=== PATIENT | female | born 1985 | race Caucasian/White ===

== ENCOUNTER 2018-08-31 07:09 | Inpatient (IN) | payer OTHER ==
[2018-08-31] VITALS (12 sets, daily range): BP systolic 128–142; BP diastolic 69–100
[2018-08-31] MEDS ORDERED: OXYTOCIN 30 UNITS IN 0.9% NaCl 500ML IV BAG (J2590) As Ordered ONE (07:20)
[2018-08-31] MEDS ORDERED: LR 1,000 ML IV SCH (07:50)
[2018-08-31] MEDS ORDERED: OXYTOCIN DRIP 30 UNITS in APPROPRIATE DILUENT 1 EA IV SCH (07:54)
[2018-08-31 07:57] LABS: CORD GAS ABE V -8.5; CORD GAS HCO3 V 17.1 MEQ/L; CORD GAS O2 SAT V 83.8 %; CORD GAS PCO2 V 35.9 mmHg; CORD GAS PH V 7.295 UNITS; CORD GAS SBC V 17.5 MEQ/L; CORD GAS TCO2 V 18.2 MEQ/L
[2018-08-31 08:00] LABS: CORD GAS ABE A -7.8; CORD GAS HCO3 A 19.8 MEQ/L; CORD GAS O2 SAT A 57.3 %; CORD GAS PCO2 A 47.4 mmHg; CORD GAS PH A 7.238 UNITS; CORD GAS PO2 A 27.7 mmHg; CORD GAS SBC A 17.4 MEQ/L; CORD GAS TCO2 A 21.2 MEQ/L
[2018-08-31] MEDS ORDERED: METOCLOPRAMIDE INJ 10MG/2ML VIAL (J2765) IV PRN (08:00)
[2018-08-31] MEDS ORDERED: DIBUCAINE 1% OINTMENT 30GM TOP PRN (08:00)
[2018-08-31] MEDS ORDERED: RHOGAM 300 MCG (1500 IU) INJ (J2790) IM SCH (08:00)
[2018-08-31] MEDS ORDERED: miSOPROStol 200 MCG TAB (S0191) PR ONE (08:15)
--- NOTE | 2018-08-31 08:15 | IPNPDOC ---
Text Note Date of Service The patient was seen on 08/31/18. NOTE SBAR from Dr Perez, precip del shortly after 0730. Asked by RN to eval bleeding, a bit more than normal Bimanual exam done and Ut was at U and boggy, with a clot at the ROLLY and cx, all removed, fundus now firm. Pit increased from 125/hr to 999/hr and cytotec placed 1000 mcg MS, also methergine 0.2 mg IM. Will get a methergine oral series for 1 day and a CBC in the AM Watching closely Sessions A-FIB/YURY A-FIB History Current/History of A-Fib/PAF?: No SESSIONS,KING Hutson MD August 31, 2018 08:15
[2018-08-31] MEDS ORDERED: IBUPROFEN 800 MG TAB As Ordered ONE (08:16)
[2018-08-31] MEDS ORDERED: PRENTAB9 PO (08:22)
[2018-08-31] MEDS ORDERED: IRON1TAB2 PO (08:22)
[2018-08-31] MEDS: IBUPROFEN 800 MG TAB PO PRN ×2 (08:38→19:26)
[2018-08-31] MEDS: DOCUSATE SODIUM 100 MG CAP PO SCH ×2 (09:00→21:00)
[2018-08-31] MEDS: PRENATAL VITAMINS CHEWABLE TABLET PO SCH (09:00)
[2018-08-31] MEDS ORDERED: METHYLERGONOVINE MALEATE 0.2 MG/ML VIAL (J2210) IM ONE (09:00)
[2018-08-31] MEDS ORDERED: OXYTOCIN INJ 10 UNITS/ML VIAL (J2590) As Ordered ONE (09:02)
[2018-08-31] MEDS ORDERED: OXYTOCIN INJ 10 UNITS/ML VIAL (J2590) IV ONE (09:15)
[2018-08-31 09:27] LABS: HEMATOCRIT 34.4 % (36.0-47.0); HEMOGLOBIN 11.7 g/dl (12.0-15.5); MEAN CORPUSCULAR HEMOGLOBIN 31.6 pg (27.0-33.0); PLATELET COUNT, AUTOMATED 219 10^3/uL (150-450)
--- NOTE | 2018-08-31 13:03 | DN ---
DATE OF DELIVERY: 08/31/2018 This lady is a 32-year-old 7, para 1 who was admitted at 38+ weeks of gestation in active labor, found to be spontaneous rupture of membranes clear liqua, fully dilated and pushing. She precipitously delivered a live female infant weighing 3460 grams, 7 pounds 10 ounces, scores of 8 and 8 at 1 and 5 minutes respectively. Placenta delivered spontaneously thereafter. Three-vessels in the cord. Membranes and tissues intact. Uterus contracted well down on Pitocin. Arterial and venous pH were performed. On examination perineum was intact. Lateral and posterior rajan were intact. Bladder was intact. Sphincter was tight. No evidence of lacerations, tears or abrasions. The patient is O negative. Tolerated procedure well.
[2018-08-31] MEDS: ACETAMINOPHEN TAB 650MG DOSE (2X325MG) PO PRN ×2 (13:55→21:06)
[2018-08-31] MEDS: METHYLERGONOVINE MALEATE 0.2 MG TAB PO SCH ×3 (13:55→21:06)
[2018-09-01] MEDS: METHYLERGONOVINE MALEATE 0.2 MG TAB PO SCH ×3 (00:50→08:17)
[2018-09-01 05:24] LABS: HEMATOCRIT 32.6 % (36.0-47.0); MEAN CORPUSCULAR HEMOGLOBIN 31.8 pg (27.0-33.0); MEAN CORPUSCULAR HGB CONC 33.7 g/dl (32.0-36.5); MEAN CORPUSCULAR VOLUME 94.2 fl (80.0-96.0); PLATELET COUNT, AUTOMATED 189 10^3/uL (150-450); RED BLOOD COUNT 3.46 10^6/uL (4.00-5.40); WHITE BLOOD COUNT 11.5 10^3/uL (4.0-10.0)
[2018-09-01] MEDS: IBUPROFEN 800 MG TAB PO PRN (05:25)
[2018-09-01 06:24] VITALS: BP 121/77
--- NOTE | 2018-09-01 07:24 | IPNPDOC ---
Text Note Date of Service The patient was seen on 09/01/18. NOTE PPD1 States feeling well, pain controlled with prescribed meds. Baby bonding and feeding well. No heavy VB. Lochia slowing. Ambulatory. Tolerating PO without issues. Voiding spont. No CP/LP/SOB. VSSAF NAD A&O LE no C/C/E Ut at U-2, firm a/p: Doing well. Cont routine care. D/C today, boarding if baby stays Sessions A-FIB/YURY A-FIB History Current/History of A-Fib/PAF?: No VS,Fishbone, I+O VS, Fishbone, I+O Laboratory Tests 08/31/18 08:41 Red Blood Count 3.70 L, Mean Corpuscular Volume 93.0, Mean Corpuscular Hemoglobin 31.6, Mean Corpuscular Hemoglobin Concent 34.0, Red Cell Distribution Width 13.0 09/01/18 05:15 Red Blood Count 3.46 L, Mean Corpuscular Volume 94.2, Mean Corpuscular Hemoglobin 31.8, Mean Corpuscular Hemoglobin Concent 33.7, Red Cell Distribution Width 13.2 Vital Signs Date Time Temp Pulse Resp B/P (MAP) Pulse Ox O2 Delivery O2 Flow Rate FiO2 09/01/18 06:24 98.5 67 18 121/77 (92) I&O- Last 24 Hours up to 6 AM 09/01/18 06:00 Output Total 900 ml Balance -900 ml SESSIONS,KING Hutson MD September 01, 2018 07:24
--- NOTE | 2018-09-01 07:27 | DS.PDOC ---
Discharge Summary General Date of Admission August 31, 2018 at 07:27 Date of Discharge [id number] Discharge Summary ADMITTING DIAGNOSES: Active labor DISCHARGE DIAGNOSES: Same, HOSPITAL COURSE: Admitted and delivery uncomplicated, . course uncomplicated. DISCHARGE MEDICATIONS: Motrin, Lanolin, Nor DISCHARGE INSTRUCTIONS: Nothing in the vagina for 6 weeks. F/U in OBGYN clinic in 6-8 weeks. Sessions Vital Signs/I&Os Vital Signs Date Time Temp Pulse Resp B/P (MAP) Pulse Ox O2 Delivery O2 Flow Rate FiO2 09/01/18 06:24 98.5 67 18 121/77 (92) I&O- Last 24 Hours up to 6 AM 09/01/18 06:00 Output Total 900 ml Balance -900 ml Laboratory Data Labs 24H Laboratory Tests 2 08/31/18 07:39: Cord Arterial Blood pH 7.238, Cord Arterial Blood PCO2 47.4, Cord Arterial Blood PO2 27.7, Cord Arterial Blood HCO3 19.8, Cord Arterial Blood Total CO2 21.2, Cord Arterial Blood Base Excess -7.8, Cord Arterial Base Excess (Standard 17.4, Cord Arterial Bld Oxygen Saturation 57.3, Cord Venous Blood pH 7.295, Cord Venous Blood PCO2 35.9, Cord Venous Blood PO2 43.0, Cord Venous Blood HCO3 17.1, Cord Venous Blood Total CO2 18.2, Cord Venous Base Excess (Actual) -8.5, Cord Venous Base Excess (Standard) 17.5, Cord Venous Blood Oxygen Saturation 83.8 08/31/18 08:41: Nucleated Red Blood Cells % (auto) 0.0, Syphilis Serology NONREACTIVE 08/31/18 08:43: Serology Scanned Report Hepatitis B Testing 09/01/18 05:15: Nucleated Red Blood Cells % (auto) 0.0 CBC/BMP Laboratory Tests 08/31/18 08:41 Red Blood Count 3.70 L, Mean Corpuscular Volume 93.0, Mean Corpuscular Hemoglobi n 31.6, Mean Corpuscular Hemoglobin Concent 34.0, Red Cell Distribution Width 13.0 09/01/18 05:15 Red Blood Count 3.46 L, Mean Corpuscular Volume 94.2, Mean Corpuscular Hemoglobi n 31.8, Mean Corpuscular Hemoglobin Concent 33.7, Red Cell Distribution Width 13.2 Discharge Medications Scheduled Ferrous Sulfate (Iron) 325 Mg Tablet, 1 TAB PO DAILY, (Reported) No.137/Iron/Folic Acd ( Vitamin Tablet) 1 Each Tablet, 1 TAB PO DAILY, (Reported) Allergies Coded Allergies: No Known Allergies (Unverified , 08/31/18) SESSIONS,KING Hutson MD September 01, 2018 07:27
[2018-09-01] MEDS ORDERED: ACET1TAB55 PO (07:41)
[2018-09-01] MEDS ORDERED: IBUP80TA PO (07:41)
[2018-09-01] MEDS: PRENATAL VITAMINS CHEWABLE TABLET PO SCH (08:17)
[2018-09-01] MEDS: DOCUSATE SODIUM 100 MG CAP PO SCH (08:17)
--- NOTE | 2018-09-01 10:40 | HPE ---
DATE OF ADMISSION: 08/31/2018 This lady is a 32-year-old 7, para 1 whose EDC was September 04, 2018. Her past history is that in May 2016 at 38 and 5 had a spontaneous vaginal delivery live male infant 8 pounds 5 ounces. Presently she is in active labor and found to be present at 9 cm. Her lab work is that she is O negative, received RhoGAM, HIV negative, hep negative, RPR negative, rubella immune. Varicella immune. Pap normal. Urine was normal. Gonorrhea and chlamydia negative. Her 1-hour glucose was 124. Her GBS was negative. Her past history is that she has had spontaneous abortions in 2015 at 6 weeks, 2012 and 6 weeks, 2006 at 7 weeks, 2005 at 6 weeks, 2004 at 6 weeks and 2014 at 10 weeks she was noted to be HPV positive on the one of her Pap smears and followup is will be done . On admission, she is in active labor significantly distressed. Her blood pressure is 135/93, respirations are 18, pulse was 83 and temperature 98.2. She had a spontaneous rupture of membranes on admission and has clear Liqua. There is a category one strip the rest of the examination is unremarkable. She is normocephalic, atraumatic. Neck: Full range of motion. Pupils equal and reactive to light. Distal pulses symmetric. No evidence of DVT, PE or superficial phlebitis. Lungs are clear bilaterally to bases. No wheezes or rhonchi. No CVA tenderness. She had has a uterine contractions at the present time for quadrant bowel sounds are noted. Appropriate symphysis fundus height. She has no rashes, lesions or pruritus. No arthralgia, myalgia, complaint of joint pain. No complaint cough, wheezes, shortness of breath or dyspnea on exertion. Not bleeding. Neuro complete. No urgency. No incontinency, urgency or frequency. No diabetic issues. She has had HPV positive and will have a followup of her Pap smear. Past medical and surgical unremarkable. Family is noncontributory. SOCIAL HISTORY: She does not smoke, drink abuse drugs. She is to a soldier. No domestic violence. ALLERGIES: She has no known allergies. MEDICATIONS: Takes vitamins and supplemental iron. We discussed the consent quickly for vaginal delivery which is going to be coming. The issue of lacerations to the perineum or the vagina were discussed briefly, episiotomy does not seem to be an issue is she has significant amount of room in the vagina. We can presently see the vertex presenting at full dilatation and she is imminently going to deliver a live infant. Our concern is bleeding. However, appropriate steps with uterotonics will be taken.
[2018-09-01] MEDS: MEASLES,MUMPS,RUBELLA VACCINE INJ (MMR-II) (90707) SC SCH ×2 (11:07→13:51)
== END 2018-09-01 14:05 | disposition home or self-care (01) | DRG 807 ==
LOC: M LDO 07:09 → M LDI 07:27 → M OBS 10:23
PROVIDERS: ADMIT Obstetrics & Gynecology; ATTEND Obstetrics & Gynecology
PROC: 10E0XZZ Delivery of Products of Conception, External Approach (ICD-10-PCS; principal; 2018-08-31)
DX: O62.3 Precipitate labor (principal); Z37.0 Single live birth; Z3A.38 38 weeks gestation of pregnancy

== ENCOUNTER 2019-04-13 01:02 | Emergency (ER) | payer OTHER ==
[~2019-04-13] VITALS: Ht 180.3 cm; Wt 83.2 kg
[~2019-04-13 01:02] MED LIST: ACET1TAB55 PO; IBUP80TA PO; IRON1TAB2 PO; PRENTAB9 PO
[2019-04-13] MEDS ORDERED: BACT800T5 PO (01:12)
[2019-04-13] MEDS ORDERED: AMPICILLIN SOD/SULBACTAM SOD 3 GM in D5W MINI-BAG PLUS 100 ML IV ONE (03:30)
[2019-04-13] MEDS ORDERED: KETOROLAC 30 MG/ML VIAL (J1885) IV ONE (03:30)
[2019-04-13] MEDS ORDERED: KETOROLAC 30 MG/ML VIAL (J1885) As Ordered ONE (03:36)
[2019-04-13] MEDS ORDERED: AUGM500T34 PO (04:28)
[2019-04-13 04:30] VITALS: BP 122/67
== END 2019-04-13 04:33 | disposition home or self-care (01) ==
LOC: M ED 01:02
DX: L03.114 Cellulitis of left upper limb (principal)
CPT/HCPCS: 87040; 96365; 96375; 99284; J1885

== ENCOUNTER 2019-10-03 06:23 | Day surgery (SDC) | payer OTHER ==
[~2019-10-03] VITALS: Ht 180.3 cm; Wt 79.9 kg
[~2019-10-03 06:23] MED LIST changes: +AUGM500T34 PO; +BACT800T5 PO; +CELE20TA PO; +KLON0.5T PO; +LIDOCAINE 1% MDV 20ML VIAL SQ PRN; +LR 1,000 ML IV ONE
[2019-10-03 06:55] LABS: HEMATOCRIT 41.2 % (36.0-47.0); HEMOGLOBIN 13.8 g/dl (12.0-15.5); MEAN CORPUSCULAR HEMOGLOBIN 29.2 pg (27.0-33.0); MEAN CORPUSCULAR HGB CONC 33.5 g/dl (32.0-36.5); MEAN CORPUSCULAR VOLUME 87.1 fl (80.0-96.0); PLATELET COUNT, AUTOMATED 276 10^3/uL (150-450); RED BLOOD COUNT 4.73 10^6/uL (4.00-5.40); WHITE BLOOD COUNT 5.1 10^3/uL (4.0-10.0)
[2019-10-03] MEDS ORDERED: LIDOCAINE 2% 100MG/5ML SDV (FOR ANES.) As Ordered ONE (07:06)
[2019-10-03] MEDS ORDERED: KETOROLAC 60MG 2ML VIAL As Ordered ONE (07:06)
[2019-10-03] MEDS ORDERED: propofoL 200 MG/20 ML VIAL As Ordered ONE (07:06)
[2019-10-03] MEDS ORDERED: MIDAZOLAM INJ 2MG/2ML VIAL (J2250 PER 1MG) As Ordered ONE (07:06)
[2019-10-03] MEDS ORDERED: METOCLOPRAMIDE INJ 10MG/2ML VIAL (J2765 PER 1) As Ordered ONE (07:06)
[2019-10-03] MEDS ORDERED: ROCURONIUM BROMIDE 50 MG/5 ML VIAL As Ordered ONE (07:06)
[2019-10-03] MEDS ORDERED: ONDANSETRON 4MG/2ML VIAL As Ordered ONE ×2 (07:06→09:11)
[2019-10-03] MEDS ORDERED: fentaNYL 100 MCG/2 ML INJECTION (J3010) As Ordered ONE ×2 (07:06→09:17)
[2019-10-03 07:14] LABS: BLOOD UREA NITROGEN 10 MG/DL (7-18); CALCIUM LEVEL 8.4 MG/DL (8.5-10.1); CARBON DIOXIDE LEVEL 25 MEQ/L (21-32); CHLORIDE LEVEL 110 MEQ/L (98-107); CREATININE FOR GFR 0.71 MG/DL (0.55-1.30); GLOMERULAR FILTRATION RATE > 60.0 (>60); GLUCOSE, FASTING 94 MG/DL (70-100); HCG, SERUM QUANTITATIVE < 1.0 MIU/ML; POTASSIUM SERUM 4.4 MEQ/L (3.5-5.1); SODIUM LEVEL 140 MEQ/L (136-145)
[2019-10-03] MEDS ORDERED: ACETAMINOPHEN 650 MG SUPP As Ordered ONE (07:31)
[2019-10-03] MEDS ORDERED: BUPIVACAINE HCL 0.5% 10ML VIAL As Ordered ONE (07:31)
[2019-10-03] MEDS ORDERED: KETOROLAC 30 MG/ML 1ML VIAL As Ordered ONE (09:11)
[2019-10-03] MEDS ORDERED: PERCOCET 5MG/325MG TAB As Ordered ONE (09:17)
[2019-10-03] MEDS: fentaNYL 100 MCG/2 ML INJECTION (J3010) IV PRN ×2 (09:20→09:32)
[2019-10-03] MEDS ORDERED: ONDANSETRON 4MG/2ML VIAL IV PRN (09:30)
[2019-10-03] MEDS ORDERED: METOCLOPRAMIDE INJ 10MG/2ML VIAL (J2765 PER 1) IV PRN (09:30)
[2019-10-03] MEDS ORDERED: LR 1,000 ML IV SCH (09:30)
[2019-10-03] MEDS: PERCOCET 5MG/325MG TAB PO PRN ×2 (09:30→09:58)
[2019-10-03] MEDS ORDERED: MORPHINE 2 MG/ML 1ML VIAL (J2270) IV PRN (11:00)
[2019-10-03 11:57] VITALS: BP 123/72
[2019-10-03] MEDS ORDERED: KETOROLAC 30 MG/ML 1ML VIAL IV PRN (14:00)
--- NOTE | 2019-10-12 11:52 | RO ---
DATE OF PROCEDURE: 10/03/2019 PREOPERATIVE DIAGNOSIS: Satisfied parity POSTOPERATIVE DIAGNOSIS: Satisfied parity OPERATION PROPOSED: Bilateral salpingectomy. OPERATION PERFORMED: Bilateral salpingectomy. Pap smear, release of adhesions and removal of intrauterine contraceptive device (IUCD) with hysteroscopy. SURGEON: Dr. Arcadio Perez. RESTORATIVE COORDINATOR:Dr Escalante for extraction retraction visualization otherwise could not complete procedure ANESTHESIA: general and local DESCRIPTION OF PROCEDURE: After adequate anesthesia and time-out, the patient was COVID negative, prepped and draped in the lithotomy position. Acetaminophen suppository 1300 mg per rectum, sequentials in place. No antibiotics required. A Rinaldi catheter in the bladder draining clear urine. Weighted speculum in the vagina. Single-tooth tenaculum on the anterior lip of the cervix. We were unable to visualize the strings from the IUCD. We did a Pap smear per protocol and sent off to pathology under separate cover. A uterine elevator was placed in the endocervical canal. Re-prepping and draping, a small subumbilical incision was made, Veress needle was applied, 3.8 liters of CO2 to flow rate of 14 to a pressure of 15. Direct entry on visualization. No evidence of hemorrhage, infection, perforation. There was a small amount of bleeding etiology initially was unknown, however, later was discovered to come from the umbilical port. Visualization of the abdomen, the right upper quadrant was normal. The appendix appeared to be normal. The left upper quadrant was normal. The anterior aspect of bladder was clear. Posterior cul-de-sac was clean, inguinal areas were normal. Both tubes were visualized to the fimbriated end. Both ovaries appeared to be normal. Uterosacrals were in place. A 3 mm port was placed on the right side, a 3 mm port was placed on the left side. Then grasping the right tube using the LigaSure the right tube was removed off. There were a couple of hydatid cysts These were crushed and was sent to pathology with the right tube. We then went ahead and elevated the left tube. Using the LigaSure. we removed the left tube and that was taken out through the 3 mm port. Both tubes were sent to pathology under separate cover. Good hemostasis was entertained. We did look to see if there is any bleeding. There was a bit of diffuse CO2 in the right iliac area, however, there was no active bleeding. We had monitored that throughout the entire procedure. Deflating to 3 mm pressure, we reviewed that area. There was no evidence of expansion. There was no evidence of bleeding. We then, under direct vision, removed the two 5 mm ports and then the mainstem port. Subcuticular stitches were placed in all areas. Marcaine 0.25% to all three sites and skin tapes. We then went below removed the uterine elevator. Hysteroscopic evaluation, we were able to identify the IUCD. This was removed under direct vision. There was really no strings attached to it that is why it was not visualized. It was removed without event. The panoramic review of the uterine cavity was normal. With instrument and pad count correct, we used 150 mL of saline in and 150 mL out. We then removed the Rinaldi catheter and the instruments and the patient was taken back to recovery in good condition. Prior to that, we have had some adhesions from the anterior abdominal wall to the lower edge of the uterus. These were removed with the LigaSure so that we could visualize the actual entire cavity in is total. The patient had not complained of these adhesive bands but there were fairly broad from just below the umbilicus towards where the fundus of the uterus was. The patient was stable, sent to recovery again in good condition. JEY
== END 2019-10-03 12:27 | disposition home or self-care (01) ==
LOC: M SDC 06:23
PROVIDERS: ATTEND Obstetrics & Gynecology
DX: Z30.2 Encounter for sterilization (principal); N73.6 Female pelvic peritoneal adhesions (postinfective); I10 Essential (primary) hypertension; K21.9 Gastro-esophageal reflux disease without esophagitis; F41.9 Anxiety disorder, unspecified; Z79.899 Other long term (current) drug therapy
CPT/HCPCS: 36415; 58555; 58661; 80048; 84702; 85027; 88300; 88302; J1885; J2250; J2270; J2405; J2765; J3010

== ENCOUNTER 2020-03-05 16:42 | Emergency (ER) | payer OTHER ==
[~2020-03-05] VITALS: Ht 180.3 cm; Wt 77.7 kg
[~2020-03-05 16:42] MED LIST changes: -LIDOCAINE 1% MDV 20ML VIAL SQ PRN; -LR 1,000 ML IV ONE
[2020-03-05] MEDS ORDERED: ALPRAZolam 0.5 MG TAB PO ONE (18:00)
[2020-03-05 18:21] LABS: BASO % 0.5 % (0.0-1.0); EOS % 0.3 % (0.0-3.0); HEMATOCRIT 35.1 % (36.0-47.0); HEMOGLOBIN 11.6 g/dl (12.0-15.5); LYMPH # 1.2 10^3/uL (1.5-5.0); LYMPH % 15.1 % (24.0-44.0); MEAN CORPUSCULAR VOLUME 87.8 fl (80.0-96.0); MONO # 0.4 10^3/uL (0.0-0.8); MONO % 5.5 % (0.0-5.0); NEUTROPHILS # 6.1 10^3/uL (1.5-8.5); NEUTROPHILS % 78.1 % (36.0-66.0); PLATELET COUNT, AUTOMATED 288 10^3/uL (150-450); WHITE BLOOD COUNT 7.8 10^3/uL (4.0-10.0)
[2020-03-05 19:16] VITALS: BP 139/77
--- NOTE | 2020-03-07 18:45 | ECGEPIP ---
[facility] - ED Test Date: 2020-03-05 Pat Name: IVA CALDERON Department: Room: - Gender: Female [employer] Installer: PATRICK : 1985 Requested By: MARCOS Watkins PA-C Order Number: [id number] Reading MD: Kim Bustillo Measurements Intervals [place] Rate: 86 P: 70 [place]: 142 QRS: 55 QRSD: 89 T: 38 QT: 377 QTc: 453 Interpretive Statements SINUS RHYTHM NO PRIOR Electronically Signed on 03-07-2020 18:44:49 EST by Kim Bustillo
== END 2020-03-05 19:17 | disposition home or self-care (01) ==
LOC: M ED 16:42
DX: F41.9 Anxiety disorder, unspecified (principal); I10 Essential (primary) hypertension; Z79.899 Other long term (current) drug therapy

== ENCOUNTER 2020-08-10 08:51 | Emergency (ER) | payer OTHER ==
[~2020-08-10] VITALS: Ht 180.3 cm; Wt 82.5 kg
[2020-08-10] MEDS ORDERED: IBUP200C25 PO (08:59)
[2020-08-10] MEDS ORDERED: BUSP15TA47 PO (08:59)
[2020-08-10] MEDS ORDERED: IBUP-1114 PO (08:59)
[2020-08-10] MEDS ORDERED: PROZ40CA PO (08:59)
[2020-08-10] MEDS ORDERED: WELLTAB40 PO (08:59)
[2020-08-10] MEDS ORDERED: BENZOCAINE 20% GEL 9GM TUBE (ANBESOL MAX STRENGTH) TOP ONE (10:30)
[2020-08-10] MEDS ORDERED: AUGM875T28 PO (10:32)
[2020-08-10 10:42] VITALS: BP 131/85
== END 2020-08-10 10:45 | disposition home or self-care (01) ==
LOC: M ED 08:51
DX: K02.9 Dental caries, unspecified (principal); Z79.899 Other long term (current) drug therapy